=== PATIENT | male | born 1955 | race Caucasian/White ===

== ENCOUNTER 2018-08-30 10:14 | Day surgery (SDC) | payer OTHER ==
[~2018-08-30] VITALS: Ht 185.4 cm; Wt 144.3 kg
[2018-08-30] VITALS (12 sets, daily range): BP systolic 98–148; BP diastolic 55–89
[~2018-08-30 10:14] MED LIST: ALBU8.5H8 INH; AMIO200T40 PO; ATOR20TA66 PO; CLOP75TA35 PO; DOCU100C40 PO; GLIP2.5T3 PO; METO-395 PO; MULT-1049 PO; NITR0.4T51 SL; VALS1TAB2 PO
[2018-08-30] MEDS ORDERED: normal saline 1000ml 1,000 ML IV SCH (10:50)
[2018-08-30] MEDS ORDERED: nitroGLYCERIN 0.4mg SUBLingual tab SL PRN (10:50)
[2018-08-30] MEDS ORDERED: diphenhydrAMINE 25mg capsule PO PRN (10:50)
[2018-08-30] MEDS ORDERED: LORazepam 0.5 MG tablet PO PRN (10:50)
[2018-08-30] MEDS ORDERED: midazolam 2 mg/2 ml injection ONE ×2 (12:05→12:58)
[2018-08-30] MEDS ORDERED: iohexol 350 MG/ML 50ML vial IV ONE ×2 (12:06→13:12)
[2018-08-30] MEDS ORDERED: iohexol 350MG/ML 100ml bottle IV ONE (12:06)
[2018-08-30] MEDS ORDERED: fentaNYL/PF 50MCG/1 ML 2ML syringe ONE (12:06)
[2018-08-30] MEDS ORDERED: LIDOcaine 1% (10mg/ml)w/preservative injection 20ml MDV ONE (12:06)
[2018-08-30] MEDS ORDERED: CLOP75TA15 PO (14:05)
[2018-08-30] MEDS ORDERED: HYDROcodone/acetaminophen 10/325mg tab PO PRN (14:15)
[2018-08-30] MEDS ORDERED: ondansetron/PF 4mg/2ml inj IV PRN (14:15)
[2018-08-30] MEDS ORDERED: proCHLORperazine 10 MG/2 ml inj IV PRN (14:15)
[2018-08-30] MEDS ORDERED: HYDROcodone/acetaminophen 5mg/325mg tablet PO PRN (14:15)
[2018-08-30] MEDS ORDERED: OXAZEpam 15mg capsule PO PRN (14:15)
== END 2018-08-30 19:30 | disposition home or self-care (01) ==
LOC: SSTAY O 10:14
PROVIDERS: ATTEND Internal Medicine Cardiovascular Disease
DX: I25.118 Atherosclerotic heart disease of native coronary artery with other forms of angina pectoris (principal); R06.02 Shortness of breath; I48.91 Unspecified atrial fibrillation; I10 Essential (primary) hypertension; E78.5 Hyperlipidemia, unspecified; E11.9 Type 2 diabetes mellitus without complications; Z72.89 Other problems related to lifestyle; Z95.1 Presence of aortocoronary bypass graft; Z79.01 Long term (current) use of anticoagulants; Z95.810 Presence of automatic (implantable) cardiac defibrillator; Z95.5 Presence of coronary angioplasty implant and graft; Z87.891 Personal history of nicotine dependence; Z99.81 Dependence on supplemental oxygen; Z79.899 Other long term (current) drug therapy; Z98.890 Other specified postprocedural states; Z82.3 Family history of stroke; Z80.9 Family history of malignant neoplasm, unspecified
CPT/HCPCS: 82948; 93459; 99152; 99153; A6257; C1760; J1644; J2001; J2250; J3010; J7030; Q0163; Q9967; A4620; C1769

== ENCOUNTER 2018-11-28 10:27 | Day surgery (SDC) | payer OTHER ==
[2018-11-28] VITALS (12 sets, daily range): BP systolic 101–149; BP diastolic 54–95
[~2018-11-28] VITALS: Ht 185.4 cm; Wt 141.6 kg
[~2018-11-28 10:27] MED LIST changes: -ALBU8.5H8 INH; -AMIO200T40 PO; -ATOR20TA66 PO; +CLOP75TA15 PO; -CLOP75TA35 PO; -DOCU100C40 PO; -MULT-1049 PO; -NITR0.4T51 SL
[2018-11-28] MEDS ORDERED: ASPI-611 PO (10:54)
[2018-11-28] MEDS ORDERED: LORazepam 0.5 MG tablet PO PRN (11:00)
[2018-11-28] MEDS ORDERED: nitroGLYCERIN 0.4mg SUBLingual tab SL PRN (11:00)
[2018-11-28] MEDS ORDERED: insulin Lispro (HumaLOG) vial - multi-dose SQ SCH (11:00)
[2018-11-28] MEDS ORDERED: normal saline 1,000 ML IV SCH (11:00)
[2018-11-28] MEDS ORDERED: dextrose ORAL solution 15 GM/59 ML bottle PO PRN ×2 (11:00)
[2018-11-28] MEDS ORDERED: glucagon, human recombinant 1mg kit SUBCUT PRN (11:00)
[2018-11-28] MEDS ORDERED: dextrose 50%-water 50ml dispensing syringe IV PRN ×2 (11:00)
[2018-11-28] MEDS ORDERED: MESSAGE TO PHARMACY PO ONE (11:00)
[2018-11-28] MEDS ORDERED: diphenhydrAMINE 25mg capsule PO PRN (11:00)
[2018-11-28] MEDS ORDERED: aspirin 325mg tablet PO ONE (11:00)
[2018-11-28] MEDS ORDERED: midazolam 2 mg/2 ml injection ONE (11:27)
[2018-11-28] MEDS ORDERED: LIDOcaine 1% (10mg/ml)w/preservative injection 20ml MDV ONE (11:27)
[2018-11-28] MEDS ORDERED: heparin 1,000unit/ml 10ml vial 10 ML ONE (11:27)
[2018-11-28] MEDS ORDERED: fentaNYL/PF 50MCG/1 ML 2ML syringe ONE (11:27)
[2018-11-28] MEDS ORDERED: iohexol 350 MG/1 ML 200ml bottle ONE (11:27)
[2018-11-28] MEDS ORDERED: tirofiban 5mg in NS 100mL 100 ML IV ONE (11:58)
[2018-11-28] MEDS ORDERED: nitroGLYCERIN-Tridil 50MG/D5W 250 ML IV ONE (12:18)
[2018-11-28] MEDS ORDERED: clopidogrel 300mg tablet ONE (12:42)
[2018-11-28] MEDS ORDERED: HYDROcodone/acetaminophen 5mg/325mg tablet PO PRN (13:20)
[2018-11-28] MEDS ORDERED: normal saline 1000ml 1,000 ML IV ONE (13:20)
[2018-11-28] MEDS ORDERED: HYDROcodone/acetaminophen 10/325mg tab PO PRN (13:20)
[2018-11-28] MEDS ORDERED: OXAZEpam 15mg capsule PO PRN (13:20)
[2018-11-28] MEDS ORDERED: proCHLORperazine 10 MG/2 ml inj IV PRN (13:20)
[2018-11-28] MEDS ORDERED: ondansetron/PF 4mg/2ml inj IV PRN (13:20)
[2018-11-28] MEDS ORDERED: insulin glargine (Lantus) pen - multi-dose SQ SCH (21:00)
== END 2018-11-28 19:15 | disposition home or self-care (01) ==
LOC: SSTAY O 10:27
PROVIDERS: ATTEND Internal Medicine Cardiovascular Disease
DX: I25.119 Atherosclerotic heart disease of native coronary artery with unspecified angina pectoris (principal); I10 Essential (primary) hypertension; E78.5 Hyperlipidemia, unspecified; I73.9 Peripheral vascular disease, unspecified; Z87.891 Personal history of nicotine dependence
CPT/HCPCS: 82948; 99152; 99153; A6257; C1874; C9600; J1644; J2001; J2250; J3010; J3246; J7030; Q0163; Q9967; A4620; C1725; C1760; C1769; C9601; J1815; J3490

== ENCOUNTER 2021-07-21 09:36 | Day surgery (SDC) | payer OTHER ==
[2021-07-21] VITALS (9 sets, daily range): BP systolic 103–128; BP diastolic 47–87
[~2021-07-21] VITALS: Ht 185.4 cm; Wt 144.0 kg
[~2021-07-21 09:36] MED LIST changes: +ASPI-611 PO
[2021-07-21] MEDS ORDERED: normal saline 1,000 ML IV SCH (10:05)
[2021-07-21] MEDS ORDERED: diphenhydrAMINE 25mg capsule PO PRN (10:05)
[2021-07-21] MEDS ORDERED: LORazepam 0.5 MG tablet PO PRN (10:05)
[2021-07-21] MEDS ORDERED: MULT-661 PO (11:05)
[2021-07-21] MEDS ORDERED: fentaNYL/PF 50MCG/1 ML 2ML syringe ONE (11:24)
[2021-07-21] MEDS ORDERED: LIDOcaine 1% (10mg/ml)w/preservative injection 20ml MDV ONE (11:24)
[2021-07-21] MEDS ORDERED: iohexol 350MG/ML 100ml bottle IV ONE ×2 (11:24→12:07)
[2021-07-21] MEDS ORDERED: midazolam 1 mg/ML 2ml injection ONE (11:24)
[2021-07-21] MEDS ORDERED: iohexol 350 MG/ML 50ML vial IV ONE (11:24)
[2021-07-21] MEDS ORDERED: proCHLORperazine 10 MG/2 ml inj IV PRN (13:00)
[2021-07-21] MEDS ORDERED: ondansetron/PF 4mg/2ml inj IV PRN (13:00)
[2021-07-21] MEDS ORDERED: OXAZEpam 15mg capsule PO PRN (13:00)
[2021-07-21] MEDS ORDERED: HYDROcodone/acetaminophen 10/325mg tab PO PRN (13:00)
[2021-07-21] MEDS ORDERED: nitroGLYCERIN 0.4mg SUBLingual tab SL PRN (13:00)
[2021-07-21] MEDS ORDERED: HYDROcodone/acetaminophen 5mg/325mg tablet PO PRN (13:00)
== END 2021-07-21 18:20 | disposition home or self-care (01) ==
LOC: SSTAY O 09:36
PROVIDERS: ATTEND Internal Medicine Cardiovascular Disease
DX: R94.39 Abnormal result of other cardiovascular function study (principal); I25.10 Atherosclerotic heart disease of native coronary artery without angina pectoris; I48.91 Unspecified atrial fibrillation; I10 Essential (primary) hypertension; E11.9 Type 2 diabetes mellitus without complications; G47.33 Obstructive sleep apnea (adult) (pediatric); E78.5 Hyperlipidemia, unspecified; F41.1 Generalized anxiety disorder; E66.9 Obesity, unspecified; Z68.41 Body mass index [BMI] 40.0-44.9, adult; Z79.82 Long term (current) use of aspirin; Z79.01 Long term (current) use of anticoagulants; Z79.899 Other long term (current) drug therapy
CPT/HCPCS: 93459; 99152; 99153; C1760; C1769; J1644; J2250; J3010; J3490; J7030; Q0163; Q9967; A4615; A4620; A6258

== ENCOUNTER 2023-03-13 14:17 | Day surgery (SDC) | payer OTHER ==
[~2023-03-13] VITALS: Ht 185.4 cm; Wt 133.7 kg
[2023-03-13 13:00] VITALS: RESP 15; O2SAT 96
[~2023-03-13 14:17] MED LIST changes: -GLIP2.5T3 PO; +MULT-661 PO
[2023-03-13] MEDS ORDERED: normal saline 1000ml 1,000 ML IV SCH (14:35)
[2023-03-13] MEDS ORDERED: EMPA10TA PO (14:43)
[2023-03-13] MEDS ORDERED: FLEC50TA PO (14:43)
[2023-03-13] MEDS ORDERED: ROSU20TA73 PO (14:43)
[2023-03-13 14:52] VITALS: BP 153/91; PULSE 60; RESP 17; TEMP 97.9; O2SAT 95
[2023-03-13 15:19] LABS: BASOPHILS % (AUTO) 0.6 % (0-1); EOSINOPHILS # (AUTO) 0.2 X10'3 (0-0.9); EOSINOPHILS % (AUTO) 3.3 % (0-6); HEMATOCRIT 48.2 % (42.0-52.0); HEMOGLOBIN 16.6 g/dl (14.0-17.9); LYMPHOCYTES # (AUTO) 1.2 X10'3 (1.1-4.8); LYMPHOCYTES % (AUTO) 24.8 % (21-51); MEAN CORPUSCULAR HEMOGLOBIN 30.9 PG (27.0-31.0); MEAN CORPUSCULAR HGB CONC 34.3 g/dL (33.0-36.5); MEAN PLATELET VOLUME 8.6 FL (7.4-10.4); MONOCYTES # (AUTO) 0.7 X10'3 (0-0.9); MONOCYTES % (AUTO) 15.1 % (2-12); NEUTROPHILS # (AUTO) 2.8 X10'3 (1.8-7.7); NEUTROPHILS % (AUTO) 56.2 % (42-75); PLATELET COUNT 165 X10'3 (140-440); RED BLOOD COUNT 5.36 X10'6 (4.70-6.10); RED CELL DISTRIBUTION WIDTH 14.7 % (11.5-14.5); WHITE BLOOD COUNT 4.9 X10'3 (4.5-11.0)
[2023-03-13 15:21] LABS: ALBUMIN 4.1 G/DL (3.4-5.0); ANION GAP 7 (8-16); BLOOD UREA NITROGEN 16 MG/DL (7-18); BUN/CREATININE RATIO 15.8 (10.0-20.0); CALCIUM 9.3 MG/DL (8.5-10.1); CHLORIDE 106 MMOL/L (99-107); CREATININE 1.01 MG/DL (0.60-1.10); GLUCOSE 100 MG/DL (70-104); POTASSIUM 4.2 MMOL/L (3.5-5.1); SODIUM 139 MMOL/L (135-145); TOTAL CARBON DIOXIDE 26.2 MMOL/L (24-32); eCRCL 81 ML/MIN; eGFR 74 ML/MIN
[2023-03-13 15:24] LABS: APTT 32 SECONDS (22-32); INR 1.2 INR; PROTHROMBIN TIME 12.5 SECONDS (9.0-12.0)
[2023-03-13] MEDS ORDERED: LIDOCAINE 2%/EPI 1:100,000 inj. Multi-dose 20 ML VIAL ONE (16:01)
[2023-03-13] MEDS ORDERED: midazolam 1 mg/ML 2ml injection ONE (16:24)
[2023-03-13] MEDS ORDERED: fentaNYL/PF 50MCG/1 ML 2ML syringe ONE (16:24)
[2023-03-13] MEDS ORDERED: vancomycin 1,000mg inj ONE (16:25)
[2023-03-13] MEDS ORDERED: ceFAZolin 1000mg inj ONE (16:25)
[2023-03-13 17:20] VITALS: BP 147/89; PULSE 61; RESP 15; O2SAT 94
[2023-03-13 17:36] VITALS: BP 117/75; PULSE 60; RESP 14; O2SAT 95
[2023-03-13 17:47] VITALS: BP 121/73; PULSE 61; RESP 15; O2SAT 95
[2023-03-13 17:55] VITALS: BP 125/86; PULSE 64; RESP 14; O2SAT 94
== END 2023-03-13 18:10 | disposition home or self-care (01) ==
LOC: SSTAY O 14:17
PROVIDERS: ATTEND Student in an Organized Health Care Education/Training Program
DX: Z45.02 Encounter for adjustment and management of automatic implantable cardiac defibrillator (principal); G47.33 Obstructive sleep apnea (adult) (pediatric); I10 Essential (primary) hypertension; E11.9 Type 2 diabetes mellitus without complications; E66.01 Morbid (severe) obesity due to excess calories; Z68.38 Body mass index [BMI] 38.0-38.9, adult; E78.5 Hyperlipidemia, unspecified; E88.81 Metabolic syndrome and other insulin resistance; I48.0 Paroxysmal atrial fibrillation; I42.9 Cardiomyopathy, unspecified; I08.1 Rheumatic disorders of both mitral and tricuspid valves; Z79.82 Long term (current) use of aspirin; Z79.01 Long term (current) use of anticoagulants; Z79.899 Other long term (current) drug therapy; Z79.84 Long term (current) use of oral hypoglycemic drugs
CPT/HCPCS: 33263; 80048; 82948; 85025; 85610; 85730; 93005; 99152; C1721; J0690; J2250; J3010; J3370; J7030; 99153